=== PATIENT | male | born 1985 | race Caucasian/White ===

== ENCOUNTER 2018-03-12 15:15 | Inpatient (IN) | payer OTHER ==
[~2018-03-12] VITALS: Ht 165.1 cm; Wt 95.4 kg
[2018-03-12] MEDS ORDERED: SODIUM CHLORIDE 0.9% 1,000 ML IV ONE ×2 (15:23→17:49)
[2018-03-12] MEDS ORDERED: SODIUM CHLORIDE FLUSH 10ML SYR IVF ONE (15:30)
[2018-03-12] MEDS ORDERED: HYDROmorphone 2 MG/ML, 1ML IVPush PRN (15:30)
[2018-03-12] MEDS ORDERED: ONDANSETRON 2MG/ML, 2ML IVPush ONE (15:30)
[2018-03-12 15:49] LABS: MEAN CORPUSCULAR HGB CONC 33.9 g/dL (33.2-36.2); MEAN CORPUSCULAR VOLUME 94.5 fL (81-97); MEAN PLATELET VOLUME 8.8 fL (7.4-10.4); PLATELET COUNT 231 x10^3/uL (130-400); RED BLOOD COUNT 5.07 x10^6/uL (4.38-5.82); RED CELL DISTRIBUTION WIDTH 12.3 % (9.4-14.8)
[2018-03-12 15:50] LABS: MD YES
[2018-03-12 15:58] LABS: ALANINE AMINOTRANSFERASE 79 U/L (12-78); ALBUMIN 3.7 g/dL (3.4-5.0); ANION GAP 8 mmol/L (5-15); CHLORIDE 103 mmol/L (98-107); CREATININE 0.88 mg/dL (0.7-1.3)
[2018-03-12 16:00] LABS: ALKALINE PHOSPHATASE 145 U/L (45-117); BILIRUBIN,TOTAL 1.1 mg/dL (0.2-1.0); TOTAL PROTEIN 8.7 g/dL (6.4-8.2)
[2018-03-12] MEDS ORDERED: ONDANSETRON 2MG/ML, 2ML ONE ×2 (16:01→18:57)
[2018-03-12] MEDS ORDERED: HYDROmorphone 2 MG/ML, 1ML ONE (16:02)
[2018-03-12 16:12] LABS: BAND#(MANUAL) 0.46 x10^3/uL; BANDS%(MANUAL) 2 % (0-7); BASOS#(MANUAL) 0.23 x10^3/uL (0-0.1); BASOS% (MANUAL) 1 % (0-1); LYMPH#(MANUAL) 3.02 x10^3/uL (1-3.4); LYMPHS% (MANUAL) 13 % (22-44); MONOS#(MANUAL) 0.46 x10^3/uL (0.3-2.7); MONOS% (MANUAL) 2 % (2-9); SEG#(MANUAL) 19.02 x10^3/uL (1.8-6.8); SEGS% (MANUAL) 82 % (42-75)
[2018-03-12 16:13] LABS: <PLATELET ESTIMATE> ADEQUATE; <PLT MORPHOLOGY> NORMAL PLT MORPH; <RBC MORPHOLOGY> NORMAL; TOXIC GRAN 1+
[2018-03-12] MEDS ORDERED: ACETAMINOPHEN 650 MG SUPP ONE (16:27)
[2018-03-12] MEDS ORDERED: ACETAMINOPHEN 650 MG SUPP PR ONE (16:30)
[2018-03-12 16:36] LABS: MICROSCOPIC INDICATED
[2018-03-12 16:50] LABS: CULTURE INDICATED? NO
[2018-03-12] MEDS ORDERED: OMNIPAQUE 180 MG/ML, 10ML VIAL ONE (17:19)
[2018-03-12] MEDS ORDERED: CEFOTETAN PMX 1GM/50ML 50 ML ONE (17:20)
[2018-03-12] MEDS ORDERED: CEFOTETAN PMX 1GM/50ML 50 ML IV ONE (17:30)
[2018-03-12] MEDS ORDERED: SODIUM CHLORIDE FLUSH 10ML SYR IVF PRN (18:00)
[2018-03-12] MEDS ORDERED: BUPIVACAINE/PF-EPI 0.5% 1:200K ONE (18:34)
[2018-03-12] MEDS ORDERED: NEOSTIGMINE 1 MG/ML, 10ML ONE (18:57)
[2018-03-12] MEDS ORDERED: ROCURONIUM 10 MG/ML,10ML ONE (18:57)
[2018-03-12] MEDS ORDERED: CEFOTETAN 1 GM ONE (18:57)
[2018-03-12] MEDS ORDERED: PROPOFOL 10 MG/ML, 20ML ONE (18:57)
[2018-03-12] MEDS ORDERED: SUCCINYLCHOLINE 20 MG/ML, 10ML ONE (18:57)
[2018-03-12] MEDS ORDERED: DEXAMETHASONE 4 MG/ML, 1ML ONE (18:57)
[2018-03-12] MEDS ORDERED: GLYCOPYRROLATE 0.2MG/1ML, 5ML ONE (18:57)
[2018-03-12] MEDS ORDERED: MIDAZOLAM 1 MG/ML, 2ML ONE (19:02)
[2018-03-12] MEDS ORDERED: FENTANYL PF 250 MCG/5ML ONE (19:02)
[2018-03-12] MEDS ORDERED: OXYcodone 5 MG/5 ML ORAL.SOL UDC ONE (20:14)
[2018-03-12] MEDS ORDERED: FENTANYL PF 100 MCG/2ML ONE (20:14)
[2018-03-12] MEDS ORDERED: HYDROmorphone 1 MG/ML, 1ML IV PRN (20:30)
[2018-03-12] MEDS ORDERED: LABETALOL 5MG/ML, 20ML IV PRN (20:30)
[2018-03-12] MEDS ORDERED: hydrALAzine 20 MG/ML, 1ML IV PRN (20:30)
[2018-03-12] MEDS ORDERED: PROMETHAZINE 25 MG/ML, 1ML IV PRN (20:30)
[2018-03-12] MEDS ORDERED: OXYcodone 5 MG/5 ML ORAL.SOL UDC PO PRN ×2 (20:30)
[2018-03-12] MEDS ORDERED: METOCLOPRAMIDE 5 MG/ML, 2ML IV PRN (20:30)
[2018-03-12] MEDS ORDERED: ONDANSETRON 2MG/ML, 2ML IV PRN ×2 (20:30→22:00)
[2018-03-12] MEDS ORDERED: MORPHINE SULFATE 4 MG/ML, 1ML IVPush PRN (20:30)
[2018-03-12] MEDS ORDERED: FENTANYL PF 100 MCG/2ML IV PRN (20:30)
[2018-03-12] MEDS ORDERED: MORPHINE SULFATE 4 MG/ML, 1ML IV PRN (22:00)
[2018-03-12] MEDS ORDERED: DIPHENHYDRAMINE 25 MG CAPSULE PO PRN (22:00)
[2018-03-13 00:19] VITALS: BP 94/50
[2018-03-13] MEDS: LACTATED RINGERS 1,000 ML IV SCH ×2 (01:13→11:00)
[2018-03-13 04:07] VITALS: BP 106/67
[2018-03-13] MEDS: OXYcodone/APAP 5/325MG TABLET PO PRN ×4 (04:18→22:31)
[2018-03-13] MEDS: CEFOTETAN PMX 2GM/50ML 50 ML IVPB SCH ×2 (04:27→16:30)
[2018-03-13 07:45] VITALS: BP 116/74
[2018-03-13 13:34] VITALS: BP 111/70
[2018-03-13 19:55] VITALS: BP 111/74
[2018-03-14 02:58] VITALS: BP 110/66
[2018-03-14] MEDS: CEFOTETAN PMX 2GM/50ML 50 ML IVPB SCH (04:55)
[2018-03-14] MEDS: OXYcodone/APAP 5/325MG TABLET PO PRN ×2 (05:32→11:32)
[2018-03-14 06:19] LABS: BASOPHILS # (AUTO) 0.01 x10^3/uL (0-0.1); BASOPHILS % (AUTO) 0 % (0-1); EOSINOPHILS # (AUTO) 0.03 x10^3/uL (0-0.4); EOSINOPHILS % (AUTO) 0 % (1-7); LYMPHOCYTES # (AUTO) 2.58 x10^3/uL (1-3.4); LYMPHOCYTES % (AUTO) 19 % (22-44); MD NO; MEAN CORPUSCULAR HEMOGLOBIN 32.5 pg (27.5-34.5); MEAN CORPUSCULAR VOLUME 95.5 fL (81-97); MEAN PLATELET VOLUME 9.1 fL (7.4-10.4); MONOCYTES # (AUTO) 0.77 x10^3/uL (0.2-0.8); MONOCYTES % (AUTO) 6 % (2-9); NEUTROPHILS # (AUTO) 10.31 x10^3/uL (1.8-6.8); NEUTROPHILS % (AUTO) 75 % (42-75); PLATELET COUNT 241 x10^3/uL (130-400); RED CELL DISTRIBUTION WIDTH 12.5 % (9.4-14.8)
[2018-03-14 06:24] LABS: CHLORIDE 101 mmol/L (98-107)
[2018-03-14 06:28] LABS: ANION GAP 10 mmol/L (5-15); CALCIUM 8.4 mg/dL (8.5-10.1); CREATININE 1.05 mg/dL (0.7-1.3)
[2018-03-14 06:45] VITALS: BP 112/65
[2018-03-14] MEDS ORDERED: OXYC-302 PO (08:56)
[2018-03-14] MEDS ORDERED: POLY17PO5 PO (08:57)
[2018-03-14] MEDS ORDERED: AMOX1TAB64 PO (08:58)
== END 2018-03-14 12:45 | disposition home or self-care (01) | DRG 340 ==
LOC: ED 17:58 → EDIP 18:09 → 4NOR 21:00 → DCLOUNGE 03-14 12:30
PROVIDERS: ADMIT Colon & Rectal Surgery; ATTEND Colon & Rectal Surgery
PROC: 0W9J4ZZ Drainage of Pelvic Cavity, Percutaneous Endoscopic Approach (ICD-10-PCS; 2018-03-12)
PROC: 0DTJ4ZZ Resection of Appendix, Percutaneous Endoscopic Approach (ICD-10-PCS; principal; 2018-03-12 19:15)
DX: K35.33 Acute appendicitis with perforation, localized peritonitis, and gangrene, with abscess (principal)
CPT/HCPCS: 36415; 99285; J3490; S0074; 74177; 80048; 80053; 81001; 83605; 83735; 85025; 87040; 88304; 96365; 96375; G0378; J1100; J1170; J2250; J2405; J2704; J2710; J3010; Q9965; J0330; J7030; J7120